=== PATIENT | female | born 1995 | race Caucasian/White ===

== ENCOUNTER → 2016-10-18 | Outpatient (CLI) | payer BC | END | disposition home or self-care (01) | LOC: MMGSC 11:23 | PROVIDERS: ATTEND Family Medicine | DX: Z13.9 Encounter for screening, unspecified (principal) | CPT/HCPCS: 87491; 87591 ==

== ENCOUNTER → 2017-11-22 | Outpatient (CLI) | payer BC ==
--- NOTE | 2017-11-22 09:58 | MR ---
EXAMINATION TYPE: MR brain wo con DATE OF EXAM: 11/22/2017 COMPARISON: NONE HISTORY: Headaches, RT Arm/Hand numbness T1-weighted sagittal, T2, FLAIR, and diffusion axial, and T2 coronal coronal views of the brain are s ubmitted. There is no evidence of acute ischemia. The ventricles, basal cisterns, and sulci overlying the conv exities are consistent with the patient's age. There is no mass effect. Craniocervical junction maintained. Sella turcica has a normal appearance. No cerebellopontine angle mass. Nasal septal deviation and changes of chronic sinusitis noted. There is nodular prominence at the level the anterior communicating artery. WHITE MATTER: There are 3 areas of abnormal signal seen within the white matter scattered bilaterally which are non specific. All measure 5 mm or less. No lesions perpendicular to ventricular system. No callosal lesions. IMPRESSION: 1. No acute intracranial process. Minimal nonspecific white matter changes can be seen with migraine headaches, hypertension. Other etiologies including demyelinating process or remote ischemia not enti rely excluded. 2. Chronic sinusitis.
== END | disposition home or self-care (01) ==
LOC: RADMRIMAIN 09:05
PROVIDERS: ATTEND Family Medicine
DX: I67.82 Cerebral ischemia (principal); R90.82 White matter disease, unspecified
CPT/HCPCS: 70551